=== PATIENT | male | born 1960 | race Caucasian/White ===

== ENCOUNTER → 2017-01-05 | Outpatient (CLI) | payer BC ==
--- NOTE | 2017-01-05 12:36 | KCIC ---
MR of the right knee Indication: Right knee pain for 2 or 3 weeks. Technique: The standard multiplanar sequences are obtained. Findings: Mild signal within the lateral meniscus but no convincing evidence of a tear. Medial meniscus:Intact. Lateral meniscus: Mild intrameniscal signal. Only suggestion of undersurface involvement on a single sagittal slice but this is very subtle. No definite tear. Anterior cruciate ligament: Intact Posterior cruciate ligament: Intact Medial collateral ligament: Intact. Iliotibial band: Intact. Posterolateral structures: Fibular collateral ligament, biceps tendon and popliteus tendon are intact. Extensor mechanism: Intact. Fluid: Small joint effusion. Articular cartilage -patellofemoral joint: Severe chondromalacia. -medial compartment: Mild degenerative changes. -lateral compartment: Mild degenerative changes. Bones: No significant lesion or acute fracture. Soft tissue: Mild subcutaneous edema at the knee. Impression: 1. Subchondral marrow contusion at the medial tibial plateau. Stress reaction could also be considered. 2. Signal at the medial meniscus but no definitive tear. 3. Primary osteoarthritis, severe at the patellofemoral joint. Electronically signed by: Osbaldo Salazar MD (01/05/2017 12:33 PM) [facility]-[id number]
== END | disposition home or self-care (01) ==
LOC: KCIC MRI 10:46
DX: S80.01XA Contusion of right knee, initial encounter (principal); M17.11 Unilateral primary osteoarthritis, right knee; X58.XXXA Exposure to other specified factors, initial encounter; Y93.89 Activity, other specified; Y92.89 Other specified places as the place of occurrence of the external cause; Y99.8 Other external cause status
CPT/HCPCS: 73721

== ENCOUNTER → 2020-12-17 | Outpatient (CLI) | payer BC ==
[~2020-12-17] MED LIST: AMLO-187 PO; ASPI-630 PO; CARV25TA2 PO; CHOL10004 PO; CYAN100031 PO; FLUT16SP NS; INSU100I13 SQ; INSU100I53 SQ; LACT1CAP37 PO; LIPITOR80 MG PO; NORT25CA3 PO; OMEG1CAP50 PO; OMEP20CA16 PO; POTA-121 PO; PREG150C PO; PYRI50CA PO; SEMA0.25 SQ; SPIR1TAB3 PO; TIZA-75 PO; TRAM50TA PO; VALS320T2 PO; furosemide PO
[2020-12-17 13:00] LABS: BASO # 0.1 x10^3/uL (0.0-0.2); BASO % 1 % (0-3); EOS # 0.4 x10^3/uL (0.0-0.7); EOS % 4 % (0-3); HEMATOCRIT 45.6 % (39.0-53.0); HEMOGLOBIN 15.2 g/dL (13.0-17.5); LYMPH % 20 % (24-48); MEAN CORPUSCULAR HEMOGLOBIN 27 pg (25-35); MEAN CORPUSCULAR HGB CONC 33 g/dL (31-37); MEAN CORPUSCULAR VOLUME 82 fL (79-100); MONO # 1.1 x10^3/uL (0.0-1.1); MONO % 11 % (0-9); NEUT # 6.4 x10^3/uL (1.8-7.7); NEUT % 64 % (31-73); PLATELET COUNT 256 x10^3/uL (140-400); RED BLOOD COUNT 5.59 x10^6/uL (4.30-5.70); RED CELL DISTRIBUTION WIDTH 15.2 % (11.5-14.5); WHITE BLOOD COUNT 9.9 x10^3/uL (4.0-11.0)
[2020-12-17 13:02] LABS: CALCIUM 9.5 mg/dL (8.5-10.1); CREATININE 1.1 mg/dL (0.7-1.3); GFR 67.8; POTASSIUM 4.1 mmol/L (3.5-5.1)
== END ==
LOC: LAB 12:26
PROVIDERS: ATTEND Internal Medicine Cardiovascular Disease
DX: I45.9 Conduction disorder, unspecified (principal)
CPT/HCPCS: 36415; 80048; 85025

== ENCOUNTER 2020-12-18 06:51 | Outpatient (CLI) | payer BC ==
[2020-12-18] VITALS (15 sets, daily range): BP systolic 102–157; BP diastolic 47–76
[~2020-12-18] VITALS: Ht 180.3 cm; Wt 159.1 kg
[~2020-12-18 06:51] MED LIST changes: -furosemide PO
[2020-12-18] MEDS ORDERED: ceFAZolin SODIUM 3 GM in IV DEXTROSE 5% 100ML 100 ML IV ONE ×2 (07:15→14:00)
--- NOTE | 2020-12-18 07:19 | EKG ---
[facility] [address] [place] [address] Test Date: 2020-12-18 Test Time: 07:21:47 Pat Name: JACOB OBDULIOTIMBO Department: Room: Gender: M Bill Peddler: DARLIN : 1960 Requested By: SUSAN GASTON Order Number: [id number] Reading MD: Rich Bemrudez Measurements Intervals [place] Rate: 63 P: 61 ID: 170 QRS: 48 QRSD: 100 T: 39 QT: 428 QTc: 441 Interpretive Statements SINUS RHYTHM NORMAL ECG RI6.01 No previous ECG available for comparison Electronically Signed On 12-23-2020 10:12:23 [employer] by Rich Bermudez
[2020-12-18] MEDS ORDERED: MIDAZOLAM HCL/PF 2 MG/2 ML VIAL. ONE (07:21)
[2020-12-18] MEDS ORDERED: fentaNYL PF VIAL 100 MCG/2 ML VIAL ONE ×2 (07:21→09:04)
[2020-12-18] MEDS ORDERED: LIDOCAINE 2%/EPI 1:100,000 20 ML VIAL. ONE (07:25)
[2020-12-18] MEDS ORDERED: LIDOCAINE 2%/EPI 1:100,000 20 ML VIAL. IJ ONE (08:00)
[2020-12-18] MEDS ORDERED: fentaNYL PF VIAL 100 MCG/2 ML VIAL IV ONE (08:00)
[2020-12-18] MEDS ORDERED: MIDAZOLAM HCL/PF 2 MG/2 ML VIAL. IV ONE (08:00)
[2020-12-18] MEDS ORDERED: IODIXANOL 320 MG/ML 100 ML VIAL. ONE (08:15)
[2020-12-18] MEDS ORDERED: IODIXANOL 320 MG/ML 100 ML VIAL. IART ONE (08:30)
[2020-12-18] MEDS ORDERED: CONTRAST GIVEN. MC PRN (08:45)
[2020-12-18] MEDS ORDERED: furosemide PO (10:02)
[2020-12-18] MEDS ORDERED: NO ANTICOAGULANT THERAPY. MC PRN (11:45)
--- NOTE | 2020-12-18 12:50 | RAD ---
EXAM: XR CHEST 1V 12/18/2020 12:27 PM CLINICAL INDICATION: Post pacemaker COMPARISON: Chest radiograph 02/12/2015 TECHNIQUE: AP upright view of the chest FINDINGS: There is a new dual-lead pacemaker with leads over the right atrial appendage and right ve ntricular apex. A probable loop recorder device also projects over the left hemithorax. The heart is at the upper limit of normal in size. Lungs are well-expanded and clear. There is no consolidation, p leural effusion, or pneumothorax. No acute osseous abnormality IMPRESSION: New dual-lead pacemaker. No pneumothorax. Electronically signed by: Yamel Klein MD (12/18/2020 12:48 PM) [id number]
--- NOTE | 2020-12-18 14:50 | NUR ---
PIV's removed, VS stable. No bleeding at PPM site, pressure dressing removed. Education provided on site care, not using arm, sedation. Patient and verbalized understanding. Patient will be coming back tomorrow, 12/19, for follow-up CXR. Needs to see Dr. Mccormack prior to leaving. All belongings taken w/ patient at time of d/c. driving home. Acknowledged that he is to wear arm sling for 2 weeks and not raise arm.
--- NOTE | 2020-12-18 16:30 | CARD ---
MR#: [id number] Date of Study: 12/18/2020 Ordering Physician: VINCENT GASTON, Referring Physician: VINCENT GASTON, Tech: APPROVED REPORT HISTORY The Patient is a 60 year-old male with a history of high grade AVB and near syncope PROCEDURES Insertion Dual Chamber Pacemaker FL TIME: 6.6 MIN DOSE: 80 GYCM2 CONTRAST: 20 ML MODERATE SEDATION: 70 MINS INDICATIONS After appropriate informed consent the left chest wall was prepped and draped in usual sterile fashio n. Patient received preoperative antibiotics with cefazolin. Approximately 40 mL of 1% lidocaine was instilled in the left infraclavicular space. A 2 inch incision was made with a 15 blade scalpel and a subcutaneous pocket was created for device placement. Under ultrasound and contrast venography bernardo cervantes a 7 Syriac sheath was placed in the left axillary subclavian vein via the modified Seldinger te chnique. Next, a 58 cm Medtronic lead with serial number [id number] was advanced to the right ventri cular apical septum and appropriate thresholds were measured. Next, a Medtronic 52 cm lead with seri al number [id number] was placed in the right atrial appendage. Appropriate slack and respiratory mo tion was checked and ensure that the leads were stable. The leads were then connected to a Medtronic pacemaker with serial number [id number]. The device was then placed in the pocket and the incision was closed after copious irrigation with antibiotic solution and ensuring hemostasis. The incision was closed in 3 layers. Steri-Strips were applied and sterile dressing was placed. The previously p laced implantable loop recorder was left in place as the patient was morbidly obese and the loop milena rder was fairly deep on the sternal aspect and therefore it was felt that it was because more discomf ort to remove it then to leave it alone and the patient was agreeable to this previously. At case completion the R wave amplitude was approximately 7.5, P wave 2.5 with thresholds less than 1 .5 in the atrium and 1 in the ventricle. Normal impedances. Normal current of injury. AAIR mode with MVP 60-1 30. No acute complications. CONCLUSION 1. Successful placement of a Medtronic MRI compatible dual-chamber pacemaker for high-grade AV block . 2. The patient will be monitored for 6 hours and receive another dose of cefazolin prior to discharg e. Post procedure chest x-ray reveals stable lead placement. Patient will have a repeat chest x-ray tomorrow and sterile dressings will be removed at that time. Signed by : Vincent Gaston, Electronically Approved : 12/18/2020 16:30:07
--- NOTE | 2020-12-19 14:50 | PDOC1 ---
History and Physical Visit Information Date of Admission: History of Present Illness History of Present Illness Teo is a 60-year-old man who comes into the hospital for a planned outpatient dual-chamber pacemaker in the setting of high-grade AV block. We had received a phone call from his set o type operator at the [facility] regarding his implantable loop recorder which had evidence of significant heart block up to 6 seconds. He was advised to have a pacemaker placed but did not want to go to the [facility] and as we had previously seen him he reached out to our office. We discussed the risks and benefits of pacemaker implantation and he wished to proceed. Cardiac Risk Factors Comments 1. Prior history of near syncope 2. Hypertension 3. Morbid obesity 4. Diastolic heart failure Current Medications Current Medications Medication reviewed. Patient currently on hydrochlorothiazide, Lasix and spironolactone. Allergies Allergies Allergies Coded Allergies Type Severity Reaction Last Updated Verified No Known Drug Allergies 12/13/20 No Social History Comments No current alcohol, tobacco or illicit drug use. He recently moved to a bigger house. ROS Review of System Negative for 10 out of 14 systems reviewed unless otherwise mentioned above in HPI Physical Exam General: Alert, Oriented X3, Cooperative HEENT: Atraumatic Lungs: Clear to auscultation Heart: Regular rate, Normal S1, Normal S2 CHEST: Clear to auscultation Abdomen: Normal bowel sounds Extremities: No clubbing Skin: No rashes Neuro: Normal gait, Strength at 5/5 X4 ext Vitals VITALS Vital Signs Date Time Temp Pulse Resp B/P (MAP) Pulse Ox O2 Delivery O2 Flow Rate FiO2 12/18/20 14:26 59 15 95 Room Air 12/18/20 09:16 2.0 12/18/20 08:24 97.9 138/64 (88) 97.9 Labs Labs Labs reviewed VTE Prophylaxis Ordered VTE Prophylaxis Devices: No VTE Pharmacological Prophylaxi: No Assessment/Plan Assessment/Plan 1. High-grade AV block Plan for dual-chamber pacemaker implantation. Justicifation of Admission Dx: Justifications for Admission: Justification of Admission Dx: N/A SUSAN GASTON MD Dec 19, 2020 14:50
== END 2020-12-18 14:55 | disposition home or self-care (01) ==
LOC: CCL 06:51
PROVIDERS: ATTEND Internal Medicine Cardiovascular Disease
DX: Z45.018 Encounter for adjustment and management of other part of cardiac pacemaker (principal); R55 Syncope and collapse; I25.10 Atherosclerotic heart disease of native coronary artery without angina pectoris; I10 Essential (primary) hypertension; E78.00 Pure hypercholesterolemia, unspecified; E11.9 Type 2 diabetes mellitus without complications; G47.30 Sleep apnea, unspecified; Z79.82 Long term (current) use of aspirin; Z79.84 Long term (current) use of oral hypoglycemic drugs; Z79.899 Other long term (current) drug therapy; Z98.890 Other specified postprocedural states
CPT/HCPCS: 33208; 71045; 75820; 93005; 99152; 99153; C1769; C1785; J0690; J2250; J3010; J3490; J7060; Q9967

== ENCOUNTER → 2020-12-19 | Outpatient (CLI) | payer BC ==
[2020-12-18 14:26] VITALS: BP 140/56
[~2020-12-19] MED LIST changes: +furosemide PO
--- NOTE | 2020-12-19 11:33 | RAD ---
XR CHEST 2V CLINICAL INDICATIONS: Reason: PACEMAKER / Spl. Instructions: / History: COMPARISON: December 18, 2020. Findings: No acute lung infiltrate or pleural effusion or pulmonary edema or lung mass or pneumothora x is seen. Bipolar atrioventricular pacemaker is again evident. The heart size, pulmonary vasculature , mediastinum and both adam are otherwise unremarkable. The osseous structures appear intact. IMPRESSION: No acute radiographic abnormality is seen. Electronically signed by: Ismael Gregg MD (12/19/2020 11:30 AM) [id number]
== END ==
LOC: RAD 11:02
PROVIDERS: ATTEND Internal Medicine Cardiovascular Disease
DX: F31.89 Other bipolar disorder (principal)
CPT/HCPCS: 71046

== ENCOUNTER → 2021-04-11 | Outpatient (CLI) | payer BC, OTHER ==
[2020-12-18 14:26] VITALS: BP 140/56
--- NOTE | 2021-04-11 14:30 | NUR ---
Pt here for lumbar spine MRI, Medtronic rep here to program pacemaker for exam. Pt tolerated without difficutly, VSS. After MRI completed Medtronic rep returned pacemaker to appropriate settings and pt ambulated out. ANGELO ROCHA
--- NOTE | 2021-04-11 15:43 | RAD ---
EXAM: Lumbar spine MRI without contrast. HISTORY: Back pain. TECHNIQUE: Multiplanar, multisequence magnetic resonance imaging of the lumbar spine was performed wi thout contrast. COMPARISON: None. FINDINGS: There is mild lumbar scoliosis. There is no significant listhesis. There is degenerative en dplate remodeling with disc desiccation and disc space narrowing at L3-L4, L4-L5 and L5-S1. There is fluid within the disc space at L5-S1. There are few osseous hemangiomas. There is no suspicious osseo us lesion. There is no acute or subacute fracture. The conus terminates at L1. At L1-L2, there is endplate remodeling. There is mild bilateral facet arthropathy. There is mild bila teral foraminal stenosis. At L2-L3, there is endplate remodeling. There is mild bilateral facet arthropathy. There is mild left foraminal stenosis. At L3-L4, there is a left paracentral to left lateral recess disc protrusion and annular tear with sl ight superior and inferior extrusion. There is also a right extraforaminal to lateral disc protrusion . These are superimposed on a disc bulge and endplate remodeling. There is mild to moderate bilateral facet arthropathy. There is mild bilateral foraminal stenosis with abutment the exiting L3 nerve riley ts. There is moderate to severe central canal stenosis. At L4-L5, there is a left foraminal to extra foraminal disc protrusion and osteophyte complex imposed on a disc bulge and endplate remodeling. There is severe bilateral facet arthropathy. There is mild left greater than right foraminal stenosis with abutment of the exiting left L4 nerve root. There is moderate central canal stenosis. At L5-S1, there is a posterior central disc protrusion and annular tear and there are right greater t mckeon left foraminal to extraforaminal disc osteophyte complexes superimposed on a disc bulge and endpl ate remodeling. There is moderate bilateral facet arthropathy. There is moderate right and mild left foraminal stenosis with abutment the exiting right greater than left L5 nerve roots. There is narrowi ng of the left lateral recess and abutment the traversing left S1 nerve root. IMPRESSION: Multilevel degenerative change involving the lumbar spine, described in detail above. Thi s results in stenosis at the aforementioned levels. The central canal stenosis is most significant at L3-L4. The foraminal stenosis is most significant on the right L5-S1. Electronically signed by: Asha Hoyos MD (04/11/2021 3:41 PM) [id number]
== END ==
LOC: MRI 13:21
PROVIDERS: ATTEND Nurse Practitioner Gerontology
DX: M47.816 Spondylosis without myelopathy or radiculopathy, lumbar region (principal); M51.27 Other intervertebral disc displacement, lumbosacral region; M48.07 Spinal stenosis, lumbosacral region; M48.8X7 Other specified spondylopathies, lumbosacral region; M51.37 Other intervertebral disc degeneration, lumbosacral region; M25.78 Osteophyte, vertebrae
CPT/HCPCS: 72148